=== PATIENT | male | born 1995 | race Caucasian/White ===

== ENCOUNTER 2022-01-13 13:25 | Emergency (ER) | payer OTHER, SELFPAY ==
--- NOTE | 2022-01-13 13:37 | ED_ITS ---
HPI - Skin/Abscess/Foreign Bdy General Chief complaint: General Medical <JANI Du Last Filed: 01/13/22 13:44> Stated complaint: Rash <JANI Du Last Filed: 01/13/22 13:44> Time Seen by Provider: 01/13/22 13:49 <JANI Du Last Filed: 01/13/22 13:44> Source: patient <JANI Loza Last Filed: 01/13/22 14:34> Mode of arrival: ambulatory <JANI Loza Last Filed: 01/13/22 14:34> Limitations: no limitations <JANI Loza Last Filed: 01/13/22 14:34> History of Present Illness HPI narrative: 26-year-old male presents to the ER for evaluation of a rash on his bilateral upper extremities that started when he was at work earlier today. He works at [employer]. He reports he was cooking some fluid and then went to go wash some dishes when he started developing and itchy, red rash on both of his hands and arms. He was given Benadryl, topical hydrocortisone and sent into the ER. Patient denies any facial swelling, wheezing, lip swelling. No history of similar reactions in the past. No known new soaps, detergents, exposure to hot oil or any other potentially irritating agents while at work. <JANI Loza Last Filed: 01/13/22 14:34> MD complaint: rash <JANI Loza Last Filed: 01/13/22 14:34> Onset (ago): minute(s) <JANI Loza Last Filed: 01/13/22 14:34> Location: LUE, RUE, L hand and R hand <JANI Loza Last Filed: 01/13/22 14:34> Quality: pruritic <JANI Loza Last Filed: 01/13/22 14:34> Pain Consistency: other (improving) <JANI Loza Last Filed: 01/13/22 14:34> Relieving factors: topical medication and medication <JANI Loza Last Filed: 01/13/22 14:34> Exacerbating factors: none <JANI Loza Last Filed: 01/13/22 14:34> Context: none <JANI Loza Last Filed: 01/13/22 14:34> Associated symptoms: denies other symptoms <JANI Loza Last Filed: 01/13/22 14:34> Treatments prior to arrival: Benadryl and corticosteroid <JANI Loza Last Filed: 01/13/22 14:34> Related Data Home medications: Previous Rx's Medication Instructions Recorded diphenhydramine HCl 25 mg capsule 50 mg PO TID PRN itching #20 caps 01/13/22 (Allergy Medication) prednisone 20 mg tablet 40 mg PO DAILY #10 tabs 01/13/22 <JANI Du Last Filed: 01/13/22 13:44> Allergies/Adverse reactions: Allergies Allergy/AdvReac Type Severity Reaction Status Date / Time No Known Allergies Allergy Verified 01/13/22 13:40 <JANI Du Last Filed: 01/13/22 13:44> Review of Systems Review of Systems: Constitutional: No Fever, No Chills ENT/Mouth: Nomouth swelling, No Swallowing Difficulty Eyes: No Eye Pain, No Swelling, No Redness Cardiovascular: No Chest Pain, No SOB Respiratory: No Cough, No Sputum, No Wheezing, No dyspnea Gastrointestinal: No Nausea, No Vomiting, No abdominal Pain Musculoskeletal: No joint pain, No Myalgias Skin: No Skin Lesions, + rash Psych: + Anxiety/Panic Heme/Lymph: No Lymphadenopathy <JANI Loza Last Filed: 01/13/22 14:34> [facility] Social History Social History: Social History Advance Directives: No Advance Directives Information Provided: No <JANI Du Last Filed: 01/13/22 13:44> Physical Exam Vital Signs: Vital Signs: Last Vital Signs Temp 98.0 F 01/13/22 13:40 Pulse 88 01/13/22 13:40 Resp 18 01/13/22 13:40 BP 117/113 H 01/13/22 13:40 Pulse Ox 98 01/13/22 13:40 O2 Del Method 01/13/22 13:40 BMI result Body Mass Index 38.2 <JANI Du - Last Filed: 01/13/22 13:44> Vital Signs: Last Vital Signs Temp 98.0 F 01/13/22 13:40 Pulse 88 01/13/22 13:40 Resp 18 01/13/22 13:40 BP 117/113 H 01/13/22 13:40 Pulse Ox 98 01/13/22 13:40 O2 Del Method 01/13/22 13:40 BMI result Body Mass Index 38.2 <JANI Loza - Last Filed: 01/13/22 14:34> Appearance: Alert. Oriented X3. No acute distress. HEENT: normal inspection. No swelling of the lips, tongue or mouth. Airway is patent. CVS: Normal heart rate and rhythm. Pulses normal. Respiratory: No respiratory distress. Lungs clear throughout. Skin: Skin warm and dry. Normal skin color. Normal skin turgor. There is a fine, erythematous maculopapular rash on the dorsal aspect of his bilateral hands and bilateral forearms. Extremities: Normal inspection, normal range of motion. Neuro: Oriented X 3. No motor deficit. No sensory deficit. <JANI Santiago - Last Filed: 01/13/22 14:34> Course Course Course Narrative: RME--26yo M c/o rash to hands/UE & facial flushing [id number] s/p washing dishes at work. Denies known allergens. Reports assoc throat itching. denies SOB. took p.o. Benadryl [employer] Talking complete sentences, uvula midline, no appreciable rash on limited exam in triage p.o. Pepcid, Claritin, and p.o. prednisone ordered in triage. Patient notably hypertensive in triage, denies history of HTN, denies headache/ CP. <JANI Du - Last Filed: 01/13/22 13:44> Reevaluation(s) Reevaluation #1: 1-year-old male presenting to the ER for evaluation of bilateral upper extremity rash after he was washing dishes and cooking at work. Possible contact dermatitis. Given doses of prednisone, Claritin and Pepcid while in the ED after he received the Benadryl and topical hydrocortisone at his employer. Rash is improving. Will treat for contact dermatitis with Benadryl and short course of prednisone. Patient agrees with plan. 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 Stable for DC. <JANI Loza - Last Filed: 01/13/22 14:34> Medications Administered Discontinued Medications Generic Name Dose Route Start Last Admin Trade Name Freq PRN Reason Stop Dose Admin Famotidine 20 mg 01/13/22 13:40 01/13/22 13:47 Famotidine 20 Mg Tablet PO 01/13/22 13:41 20 mg ONCE ONE Administration Loratadine 10 mg 01/13/22 13:40 01/13/22 13:47 Loratadine 10 Mg Tablet PO 01/13/22 13:41 10 mg ONCE ONE Administration Prednisone 40 mg 01/13/22 13:40 01/13/22 13:47 Prednisone 20 Mg Tablet PO 01/13/22 13:41 40 mg ONCE ONE Administration <JANI Du Last Filed: 01/13/22 13:44> Medications Administered Discontinued Medications Generic Name Dose Route Start Last Admin Trade Name Freq PRN Reason Stop Dose Admin Famotidine 20 mg 01/13/22 13:40 01/13/22 13:47 Famotidine 20 Mg Tablet PO 01/13/22 13:41 20 mg ONCE ONE Administration Loratadine 10 mg 01/13/22 13:40 01/13/22 13:47 Loratadine 10 Mg Tablet PO 01/13/22 13:41 10 mg ONCE ONE Administration Prednisone 40 mg 01/13/22 13:40 01/13/22 13:47 Prednisone 20 Mg Tablet PO 01/13/22 13:41 40 mg ONCE ONE Administration <JANI Loza Last Filed: 01/13/22 14:34> Discharge Plan Discharge Clinical Impression: Contact dermatitis <JANI Du Last Filed: 01/13/22 13:44> Patient Disposition: Home, Self-Care <JANI Du Last Filed: 01/13/22 13:44> Instructions: Contact Dermatitis (ED) <JANI Du Last Filed: 01/13/22 13:44> Prescriptions: New prednisone 20 mg tablet 40 mg PO DAILY Qty: 10 0RF diphenhydramine HCl [Allergy Medication] 25 mg capsule 50 mg PO TID PRN (Reason: itching) Qty: 20 0RF <JANI Du - Last Filed: 01/13/22 13:44> Stand Alone Forms: Work/School Release <JANI Du - Last Filed: 01/13/22 13:44> Interventions: ED Discharge Assessment Last Done: 01/13/22 14:18 <JANI Du - Last Filed: 01/13/22 13:44> Discharge Date/Time: 01/13/22 14:18 <JANI Du - Last Filed: 01/13/22 13:44> Print Language: Belarusian <JANI Du - Last Filed: 01/13/22 13:44>
[2022-01-13 13:40] VITALS: BP 117/113; PULSE 88; RESP 18; TEMP 36.7; O2SAT 98; BMI 38.2
[2022-01-13] MEDS: predniSONE 20 MG TABLET 40 MG PO (13:47)
[2022-01-13] MEDS: Loratadine 10 MG TABLET PO (13:47)
[2022-01-13] MEDS: Famotidine 20 MG TABLET PO (13:47)
== END 2022-01-13 14:18 | disposition home or self-care (01) ==
PROVIDERS: Emergency Provider Emergency Medicine Emergency Medical Services
DX: L25.9 Unspecified contact dermatitis, unspecified cause (principal); R21 Rash and other nonspecific skin eruption; Z79.899 Other long term (current) drug therapy
CPT/HCPCS: 99282; 99283

== ENCOUNTER 2022-02-20 18:49 | Emergency (ER) | payer OTHER, SELFPAY ==
[2022-02-20 19:18] VITALS: BP 151/94; PULSE 79; RESP 18; TEMP 36.3; O2SAT 99; BMI 38.2
--- NOTE | 2022-02-20 19:24 | ED.URI ---
HPI - URI/Sore Throat General Chief Complaint: Upper Respiratory Symptoms Stated Complaint: flu symptoms Time Seen by Provider: 02/20/22 19:28 Source: patient Mode of arrival: ambulatory Limitations: no limitations History of Present Illness HPI Narrative: 27-year-old male presents to the ER for evaluation of flu-like symptoms that started yesterday. He states he has had mild cough, nasal congestion, headaches, mild sore throat since yesterday. He is to go [employer] test at work today and had 2 lines on it. He did not know what that meant. He came to the ER for further evaluation. presents with similar symptoms. He is vaccinated, has had 2 or 3 of the COVID shots. No high risk factors. MD elicited complaint: cough, sore throat and nasal congestion Onset (ago): day(s) (1) Consistency: intermittent Severity: moderate Description of mucous: clear and watery Able to tolerate fluids by mouth: Yes Exacerbating factors: nothing Relieving factors: nothing Context: sick contacts Associated symptoms: chills, myalgias, headache, rhinorrhea, nasal congestion, sore throat and cough Treatments prior to arrival: none Related Data Previous Rx's Medication Instructions Recorded diphenhydramine HCl 25 mg capsule 50 mg PO TID PRN itching #20 caps 01/13/22 (Allergy Medication) prednisone 20 mg tablet 40 mg PO DAILY #10 tabs 01/13/22 Allergies Allergy/AdvReac Type Severity Reaction Status Date / Time No Known Allergies Allergy Verified 01/13/22 13:40 Review of Systems Review of Systems: Constitutional: No Fever, No Chills ENT/Mouth: +sore throat, +Rhinorrhea, No Swallowing Difficulty Eyes: No Eye Pain, No Swelling, No Redness Cardiovascular: No Chest Pain, No SOB Respiratory: +Cough, No Sputum, No Wheezing, No dyspnea Gastrointestinal: No Nausea, No Vomiting, No Diarrhea, No abdominal Painria Musculoskeletal: No joint pain, +Myalgias Skin: No Skin Lesions, No rash Neuro: No Weakness, No Numbness, No Dizziness, +Headache Psych: + Anxiety/Panic Heme/Lymph: No Bruising, No Lymphadenopathy PMFSH Social History Social History Advance Directives: No Advance Directives Information Provided: No Physical Exam Vital Signs: Vital Signs: Last Vital Signs Temp 97.4 F 02/20/22 19:18 Pulse 79 02/20/22 19:18 Resp 18 02/20/22 19:18 BP 151/94 H 02/20/22 19:18 Pulse Ox 99 02/20/22 19:18 O2 Del Method 02/20/22 19:18 BMI result Body Mass Index 38.2 Appearance: Alert. Oriented X3. No acute distress. HEENT: normal inspection. Oropharynx with moist mucous membranes. No tonsillar swelling or exudate. Normal voice. Handling secretions normally. Clear nasal discharge bilaterally CVS: Normal heart rate and rhythm. Pulses normal. Respiratory: No respiratory distress. Lungs are clear throughout. Skin: Skin warm and dry. Normal skin color. Normal skin turgor. No rashes. Extremities: Normal inspection x4, steady gait. Neuro: Oriented X 3. Grossly normal, nonfocal. Course Course Course Narrative: 19:25 - 27 yo male presenting with cough, congestion, headache, sore throat. Tested positive for COVID at work but didn't know what the 2 lines meant. Swab sent here to confirm. VSS. Vaccinated x2-3 for COVID. will be able to be d/c home with supportive care. Discharge Plan Discharge Clinical Impression: COVID-19 Patient Disposition: Home, Self-Care Instructions: Covid-19 Viral Syndrome and Novel Coronavirus (ED) Hey/Ath Additional Instructions: You were found to be COVID-19 POSITIVE today. Rest. Drink plenty of fluids. Do not go out in public while you are not feeling well. Take over the counter cold/flu medications as needed for your symptoms. Take Tylenol and/or Motrin as needed for fevers and body aches. Follow up with your doctor this week. If you shortness of breath worsens , if you develop difficulty breathing or any other concerning symptom come back to the ER for further evaluation. Prescriptions: No Action prednisone 20 mg tablet 40 mg PO DAILY Qty: 10 0RF diphenhydramine HCl [Allergy Medication] 25 mg capsule 50 mg PO TID PRN (Reason: itching) Qty: 20 0RF Stand Alone Forms: Work/School Release Print Language: Guatemalan
[2022-02-20 20:22] LABS: Influenza A PCR NEGATIVE (Negative); Influenza B PCR NEGATIVE (Negative); Resp Syncy Virus RNA Qual PCR NEGATIVE (Negative); SARS COV2 PCR INHOUSE POSITIVE (Negative)
== END 2022-02-20 21:39 | disposition home or self-care (01) ==
PROVIDERS: Emergency Provider Emergency Medicine
DX: U07.1 COVID-19 (principal); M79.10 Myalgia, unspecified site; R51.9 Headache, unspecified; R05.9 Cough, unspecified; Z79.899 Other long term (current) drug therapy
CPT/HCPCS: 0241U; 99282; 99283

== ENCOUNTER 2022-09-15 21:48 | Emergency (ER) | payer OTHER, SELFPAY ==
[2022-09-15 22:21] VITALS: BP 151/97; PULSE 90; RESP 18; TEMP 36.8; O2SAT 98; BMI 36.6
[2022-09-15 22:38] LABS: MANUAL DIFF FLAG NO
[2022-09-15 22:41] LABS: Basophils Absolute Auto 0.1 X10*3/uL (0.0-0.2); Basophils Percent Auto 0.7 % (0-2); Eosinophils Absolute Auto 1.6 X10*3/uL (0.0-0.4); Eosinophils Percent Auto 10.7 % (0-4); Hematocrit 47.6 % (42.0-52.0); Hemoglobin 16.4 g/dl (14.0-18.0); Imm Gran Abs Auto 0.05 X10*3/uL (0.00-0.03); Imm Gran Pct Auto 0.3 % (0.0-0.4); Lymphocytes Absolute Auto 3.2 X10*3/uL (1.2-4.9); Lymphocytes Percent Auto 22.2 % (20-40); Mean Corpuscular HGB Conc 34.5 g/dl (31.0-36.0); Mean Corpuscular Hemoglobin 29.4 pg (27.0-33.0); Mean Corpuscular Volume 85.3 fL (80.0-98.0); Mean Platelet Volume 9.6 fL (9.4-12.4); Monocytes Absolute Auto 1.1 X10*3/uL (0.1-1.2); Monocytes Percent Auto 7.6 % (2-11); Neutrophils Absolute Auto 8.5 x10*3/uL (2.0-8.3); Neutrophils Percent Auto 58.5 % (45-73); Platelet Count 371 X10*3/uL (160-400); Red Blood Count 5.58 X10*6/uL (4.60-5.80); Red Cell Distribution Width 12.3 % (11.0-16.0); White Blood Count 14.5 X10*3/uL (4.8-10.8)
[2022-09-15 22:54] LABS: Alanine Aminotransferase 67 U/L (0-40); Albumin Level 4.1 g/dL (3.5-5.0); Alkaline Phosphatase 51 U/L (39-117); Anion Gap 11 (12-20); Aspartate Amino Transferase 34 U/L (5-37); Bilirubin Direct 0.1 mg/dL (0.0-0.5); Bilirubin Total 0.3 mg/dL (0.0-1.0); Blood Urea Nitrogen 8 mg/dL (9-16); Calcium 9.3 mg/dL (8.4-10.2); Carbon Dioxide 29 mmol/L (22-29); Chloride 105 mmol/L (96-108); Creatinine Clr Calc Pharmacy 142.6; Estimated Glomerular Filt Rate > 60; Glucose Random 113 mg/dL (60-115); Potassium 3.5 mmol/L (3.3-5.1); Sodium 141 mmol/L (135-145); Total Protein 7.3 g/dL (6.5-8.0)
[2022-09-16 00:24] VITALS: BP 178/102; PULSE 72; RESP 16; TEMP 37.2; O2SAT 99
[2022-09-16 00:41] LABS: Appearance Urine Cloudy; Color Urine Yellow; Glucose Urine UA Negative (Negative); Leukocyte Esterase Urine Negative (Negative); Nitrite Urine Negative (Negative); PH 6.5 (5.0-9.0); Urine Blood Negative (Negative); Urine Ketones Negative (Negative); Urine Protein Negative (Neg-Trace)
--- NOTE | 2022-09-16 00:51 | ED_ITS ---
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 Symptoms started since yesterday in the epigastric area as a dull aching pain localized to the epigastric area with no radiation, pain started since yesterday has been steady, patient also feels like burning sensation in the epigastric area. Pain is worse with food patient did not eat since yesterday, normal bowel movement with no bleeding or black stool. No recent travel, no recent prolonged immobilization or exposure to a bad food, no recent use of antibiotic. Related Data Previous Rx's Medication Instructions Recorded diphenhydramine HCl 25 mg capsule 50 mg PO TID PRN itching #20 caps 01/13/22 (Allergy Medication) prednisone 20 mg tablet 40 mg PO DAILY #10 tabs 01/13/22 omeprazole 40 mg capsule,delayed 40 mg PO DAILY #14 caps 09/16/22 release Allergies Allergy/AdvReac Type Severity Reaction Status Date / Time No Known Allergies Allergy Verified 01/13/22 13:40 Review of Systems Review of Systems All other systems are reviewed and are negative Constitutional: Reports as per HPI and Reports no additional constitutional complaints Eyes: Reports as per HPI and Reports no additional eye complaints Reports system reviewed and no additional complaints, except as documented Cardiovascular: Reports as per HPI and Reports no additional cardiovascular complaints Respiratory: Reports as per HPI and Reports no additional respiratory complaints Gastrointestinal: Reports as per HPI and Reports no additional gastrointestinal complaints Genitourinary: Reports no additional female genitourinary complaints Musculoskeletal: Reports no additional musculoskeletal complaints Skin/Breast: Reports system reviewed and no additional complaints, except as docu Psychiatric: Reports no additional psychiatric complaints Endocrine: Reports no additional endocrine complaints Hematologic/Lymphatic: Reports no additional hematologic/lymphatic complaints Allergic/Immunologic: Reports no additional allergic/immunologic complaints Reports system reviewed and no additional complaints, except as documented and Reports Abnormal speech present [facility] Social History Social History Advance Directives: No Advance Directives Information Provided: Yes Physical Exam ED Vital Signs: Vital Signs - 24 hr 09/15/22 22:21 09/16/22 00:24 Temperature 98.2 F 98.9 F Pulse Rate 90 72 Respiratory Rate 18 16 Blood Pressure 151/97 H 178/102 H Pulse Oximetry 98 99 Oxygen Delivery Method Room Air Room Air BMI result Body Mass Index 36.6 Vital signs have been reviewed as appeared to be correct. Blood pressure normal. Heart rate normal. Respiration rate normal. Temperature normal. Oxygen saturation normal. Appearance: Alert. Oriented X3. No acute distress. Head: Normal external exam. Normocephalic. Atraumatic. No Guerrero signs noted. No raccoon eyes noted Eyes: PERRLA. EOMI. Conjunctiva and sclera normal. Eyelids normal. ENT: TM's Normal. Pharynx normal. Uvula midline. Moist mucous membranes. No trismus noted. No drooling noted. No muffled voice noted. Neck: Normal inspection. Neck supple. FROM. No adenopathy. Thyroid Normal. No meningeal signs. No neck mass noted. CVS: Normal heart rate and rhythm. Heart sound normal. No murmurs noted. Pulses normal throughout. Respiratory: No respiratory distress. Painless inspiration. Breath sounds normal. No wheezes/rales/rhonchi noted. Chest nontender. No accessory muscle usage noted or decreased air movement noted. Abdomen: Soft, epigastric tenderness, no guarding, no rebound tenderness.. Bowel sounds normal in all 4 quadrants. No distention noted. No organomegaly noted. No visible injury noted. Back: No CVA tenderness. Full range of motion noted. Skin: Skin warm and dry. Normal skin color. Normal skin turgor. No rashes/lesions/lacerations noted. Extremities: No lower extremity edema. Extremities exhibit normal range of motion. Extremities nontender. Neuro: Oriented X 3. Cranial nerve exam: II-XII are grossly intact No motor deficit. No sensory deficit. Reflexes normal. Course Course Course Narrative: 27-year-old male came in with epigastric abdominal pain with vomiting, physical exam is consistent with gastritis, patient feels better able to tolerate p.o. intake will discharge with Prilosec and follow-up with GI. Medical Decision Making Differential Diagnosis Differential Diagnoses: The differential diagnosis associated with the presentation includes (Gastritis, gallbladder disease, liver disease, pancreatitis, electrolyte abnormality, severe anemia, UTI.) Admission/Observation Consideration of admission/observation: Escalation of care including admission/observation considered Lab Data MDM Lab Attestation statement: I reviewed the patient's lab results. 09/15/22 22:35 09/15/22 22:35 Labs: Lab Results 09/15/22 09/15/22 09/16/22 Range/Units 22:35 22:35 00:35 WBC 14.5 H (4.8-10.8) X10*3/uL RBC 5.58 (4.60-5.80) X10*6/uL Hgb 16.4 (14.0-18.0) g/dl Hct 47.6 (42.0-52.0) % MCV 85.3 (80.0-98.0) fL MCH 29.4 (27.0-33.0) pg MCHC 34.5 (31.0-36.0) g/dl RDW 12.3 (11.0-16.0) % Plt Count 371 (160-400) X10*3/uL MPV 9.6 (9.4-12.4) fL Immature Gran % (Auto) 0.3 (0.0-0.4) % Neut % (Auto) 58.5 (45-73) % Lymph % (Auto) 22.2 (20-40) % Atkinson % (Auto) 7.6 (2-11) % Eos % (Auto) 10.7 H (0-4) % Baso % (Auto) 0.7 (0-2) % Lymph # (Auto) 3.2 (1.2-4.9) X10*3/uL Atkinson # (Auto) 1.1 (0.1-1.2) X10*3/uL Eos # (Auto) 1.6 H (0.0-0.4) X10*3/uL Baso # (Auto) 0.1 (0.0-0.2) X10*3/uL Abs Immat Gran (auto) 0.05 H (0.00-0.03) X10*3/uL Absolute Neuts (auto) 8.5 H (2.0-8.3) x10*3/uL Absolute Nucleated RBC 0.000 (0.0-0.012) X10*3/uL Nucleated RBC % (auto) 0.0 (0.0-0.2) /100WBC Sodium 141 (135-145) mmol/L Potassium 3.5 (3.3-5.1) mmol/L Chloride 105 (96-108) mmol/L Carbon Dioxide 29 (22-29) mmol/L Anion Gap 11 L (12-20) BUN 8 L (9-16) mg/dL Creatinine 0.83 (0.5-1.4) mg/dL Estim Creat Clear Calc 142.6 Estimated GFR > 60 Random Glucose 113 (60-115) mg/dL Calcium 9.3 (8.4-10.2) mg/dL Total Bilirubin 0.3 (0.0-1.0) mg/dL Direct Bilirubin 0.1 (0.0-0.5) mg/dL AST 34 (5-37) U/L ALT 67 H (0-40) U/L Alkaline Phosphatase 51 (39-117) U/L Total Protein 7.3 (6.5-8.0) g/dL Albumin 4.1 (3.5-5.0) g/dL Urine Color Yellow Urine Appearance Cloudy Urine pH 6.5 (5.0-9.0) Ur Specific Beverly 1.020 (1.005-1.025) Urine Protein Negative (Neg-Trace) mg/dL Urine Glucose (UA) Negative (Negative) mg/dL Urine Ketones Negative (Negative) mg/dL Urine Blood Negative (Negative) Urine Nitrite Negative (Negative) Ur Leukocyte Esterase Negative (Negative) Discharge Plan Discharge Clinical Impression: Gastritis Patient Disposition: Home, Self-Care Instructions: Gastritis (ED) Prescriptions: New omeprazole 40 mg capsule,delayed release(DR/EC) 40 mg PO DAILY Qty: 14 0RF No Action prednisone 20 mg tablet 40 mg PO DAILY Qty: 10 0RF diphenhydramine HCl [Allergy Medication] 25 mg capsule 50 mg PO TID PRN (Reason: itching) Qty: 20 0RF Referrals: Lupe Queen MD [Physician] -
[2022-09-16] MEDS: 0.9 % Sodium Chloride 1,000 ML 999 ML IV (01:12)
[2022-09-16] MEDS: Famotidine/PF 20 MG/2 ML VIAL IVPUSH (01:12)
[2022-09-16] MEDS: Magnesium Hydrox/Alum Hydrox 30 ML ORAL.SUSP PO (01:12)
[2022-09-16 02:29] VITALS: BP 159/80; PULSE 67; RESP 16; TEMP 37.2; O2SAT 98
== END 2022-09-16 03:31 | disposition home or self-care (01) ==
PROVIDERS: Emergency Provider Emergency Medicine
DX: K29.70 Gastritis, unspecified, without bleeding (principal); R10.10 Upper abdominal pain, unspecified; F12.90 Cannabis use, unspecified, uncomplicated
CPT/HCPCS: 36415; 80053; 81003; 82248; 85025; 96374; 99284

== ENCOUNTER 2023-03-04 09:03 | Emergency (ER) | payer OTHER, SELFPAY ==
--- NOTE | ~2023-03-04 | XR_ITS ---
EXAMINATION: XR CHEST CLINICAL INFORMATION: Chest pain COMPARISON: None available. TECHNIQUE: 2 views of the chest were obtained. 9:40 AM FINDINGS: The lungs are relatively well expanded no focal consolidation, interstitial pulmonary edema or pneumothorax. No pleural effusion. No significant abnormality is noted involving the heart, mediastinum or soft tissues. No acute osseous abnormality. XR/XR chest 2V IMPRESSION: No acute cardiopulmonary disease.
[2023-03-04 09:17] VITALS: BP 169/93; PULSE 81; RESP 19; TEMP 36.6; O2SAT 98; BMI 39.3
--- NOTE | 2023-03-04 09:19 | ECG_ITS ---
Test Reason : cp Blood Pressure : / mmHG Vent. Rate : 073 BPM Atrial Rate : 073 BPM P-R Int : 140 ms QRS Dur : 082 ms QT Int : 404 ms P-R-T Axes : 027 038 036 degrees QTc Int : 445 ms Normal sinus rhythm with sinus arrhythmia Normal ECG No previous ECGs available Referred By: Generic ED Physician Electronically Signed By:BHAVNA MURPHY MD
[2023-03-04 09:40] LABS: Basophils Percent Auto 0.6 % (0-2); Eosinophils Absolute Auto 0.2 X10*3/uL (0.0-0.4); Eosinophils Percent Auto 3.1 % (0-4); Hematocrit 47.7 % (42.0-52.0); Hemoglobin 16.2 g/dl (14.0-18.0); Imm Gran Abs Auto 0.02 X10*3/uL (0.00-0.03); Imm Gran Pct Auto 0.3 % (0.0-0.4); Lymphocytes Absolute Auto 2.5 X10*3/uL (1.2-4.9); Mean Corpuscular Hemoglobin 29.1 pg (27.0-33.0); Mean Corpuscular Volume 85.8 fL (80.0-98.0); Mean Platelet Volume 10.1 fL (9.4-12.4); Monocytes Absolute Auto 0.7 X10*3/uL (0.1-1.2); Monocytes Percent Auto 11.1 % (2-11); Neutrophils Percent Auto 45.9 % (45-73); Red Blood Count 5.56 X10*6/uL (4.60-5.80); Red Cell Distribution Width 12.4 % (11.0-16.0)
[2023-03-04 09:43] LABS: Platelet Count 357 X10*3/uL (160-400); White Blood Count 6.5 X10*3/uL (4.8-10.8)
[2023-03-04 09:54] LABS: Anion Gap 11 (12-20); Blood Urea Nitrogen 10 mg/dL (9-16); Calcium 8.9 mg/dL (8.4-10.2); Carbon Dioxide 25 mmol/L (22-29); Chloride 108 mmol/L (96-108); Creatinine Clr Calc Pharmacy 148.5; Estimated Glomerular Filt Rate > 60; Glucose Random 126 mg/dL (60-115); Potassium 3.9 mmol/L (3.3-5.1); Sodium 140 mmol/L (135-145)
[2023-03-04 10:03] LABS: Troponin-I High Sensitivity < 2.7 ng/L (<3.5-35.0)
[2023-03-04 10:24] LABS: Influenza A PCR NEGATIVE (Negative); Influenza B PCR NEGATIVE (Negative); Resp Syncy Virus RNA Qual PCR NEGATIVE (Negative); SARS COV2 PCR INHOUSE POSITIVE (Negative)
[2023-03-04 13:58] VITALS: BP 160/88; PULSE 79; RESP 19; TEMP 36.1; O2SAT 98
--- NOTE | 2023-03-04 14:00 | ED_ITS ---
HPI - Chest Pain General Chief Complaint: Chest Pain Stated Complaint: Chest Pain Fever Time Seen by Provider: 03/04/23 13:58 Source: patient Mode of arrival: ambulatory Limitations: no limitations History of Present Illness HPI narrative: 28 yold male presents to the ED for coughing with chest pain, bodaches, and chills. patient states no pleurisy, leg swelling, calf pain, shortness of breath, or recent trauma. Related Data Previous Rx's Medication Instructions Recorded diphenhydramine HCl 25 mg capsule 50 mg (2 x 25 mg) PO TID PRN 01/13/22 (Allergy Medication) itching #20 caps prednisone 20 mg tablet 40 mg (2 x 20 mg) PO DAILY #10 tabs 01/13/22 omeprazole 40 mg capsule,delayed 40 mg PO DAILY #14 caps 09/16/22 release Allergies Allergy/AdvReac Type Severity Reaction Status Date / Time No Known Allergies Allergy Verified 01/13/22 13:40 Review of Systems 2 Review of Systems: chest pain with coughing, bodyaches, chills Yes all other systems are reviewed and are negative [facility] Social History Social History Alcohol intake: never Substance Use Type: Marijuana Advance Directives: No Physical Exam 2 Vital Signs: Vital Signs: Last Vital Signs Temp 97 F 03/04/23 13:58 Pulse 79 03/04/23 13:58 Resp 19 03/04/23 13:58 BP 160/88 H 03/04/23 13:58 Pulse Ox 98 03/04/23 13:58 O2 Del Method Room Air 03/04/23 13:58 BMI result Body Mass Index 39.3 Const: General: cooperative, healthy appearing, comfortable, no acute distress, well developed, alert and awake Orientation/consciousness: oriented to person, oriented to place, oriented to time and patient oriented x3 HEENT: Head: Yes normal to inspection, Yes No palpable skull fracture present, Yes normocephalic and Yes atraumatic Ears: hearing grossly normal bilaterally, external ears normal, TM's normal bilaterally, TM normal on the right, TM normal on the left, EAC's normal, mastoids normal and no periauricular adenopathy Throat: Yes posterior oropharynx normal, Yes tonsils normal and Yes uvula midline Eyes: General: appearance normal, both eyes and all related structures Neck: Neck: Yes normal visual inspection, Yes full ROM, Yes no lymphadenopathy, Yes no meningeal signs, Yes trachea midline, No supple and No tender Chest: Chest palpation & inspection: normal inspection of the chest and normal palpation of entire chest wall Resp: Effort & Inspection: normal respiratory effort and able to speak in complete sentences Auscultation: clear to auscultation bilaterally Cardio: Jugular venous distension: no JVD Heart sounds: S1 normal heart sound present and S2 normal heart sound present GI: Inspection: Yes normal to inspection Palpation (GI): Soft to palpation, not firm, nontender, no guarding and not rigid : General: Yes no CVA tenderness Back/Spine/Pelvis: Back: no CVA tenderness and No back tenderness Skin: General skin exam: no rashes or lesions noted, elasticity normal and turgor normal Neuro: General: oriented to person, oriented to place, oriented to time, patient oriented x3, gait normal, tone normal, moves all extremities, Normal light touch and pain sensation, no meningeal signs and no focal motor deficits Extrem: Other: bilateral lower extremties negative for pittign edema, calf tenderness or swelling. General: Yes normal to inspection and Yes full ROM Psych: Appearance: grossly normal, well kempt and not disheveled Course Course Course Narrative: RME: Patient positive COVID. Vital signs stable. Troponin EKG negative. Patient is safe for discharge. Patient re-evaluated at triage. Medical Decision Making Medical Decision Making [facility] Narrative: 28-year-old male presents to ED with coughing, chest pain since last Friday. Patient denies any pleurisy, leg swelling, calf pain, or coughing up blood. Chest x-ray negative pneumonia. EKG troponin negative. COVID positive. Not suspect a myocardial infarction. Not suspecting heart failure. not suspect a pulmonary embolus. Not suspect myocarditis. Patient is safe for discharge. EKG negative STEMI Differential Diagnosis Differential Diagnoses: The differential diagnosis associated with the presentation includes (SARS, COvid, RSV, pneumonia) Admission/Observation Consideration of admission/observation: Escalation of care including admission/observation considered Lab Data [facility] Lab Attestation statement: I reviewed the patient's lab results. 03/04/23 09:31 03/04/23 09:31 Labs: Lab Results 03/04/23 Range/Units 09:31 WBC 6.5 (4.8-10.8) X10*3/uL RBC 5.56 (4.60-5.80) X10*6/uL Hgb 16.2 (14.0-18.0) g/dl Hct 47.7 (42.0-52.0) % MCV 85.8 (80.0-98.0) fL MCH 29.1 (27.0-33.0) pg MCHC 34.0 (31.0-36.0) g/dl RDW 12.4 (11.0-16.0) % Plt Count 357 (160-400) X10*3/uL MPV 10.1 (9.4-12.4) fL Immature Gran % (Auto) 0.3 (0.0-0.4) % Neut % (Auto) 45.9 (45-73) % Lymph % (Auto) 39.0 (20-40) % Hood % (Auto) 11.1 H (2-11) % Eos % (Auto) 3.1 (0-4) % Baso % (Auto) 0.6 (0-2) % Lymph # (Auto) 2.5 (1.2-4.9) X10*3/uL Hood # (Auto) 0.7 (0.1-1.2) X10*3/uL Eos # (Auto) 0.2 (0.0-0.4) X10*3/uL Baso # (Auto) 0.0 (0.0-0.2) X10*3/uL Abs Immat Gran (auto) 0.02 (0.00-0.03) X10*3/uL Absolute Neuts (auto) 3.0 (2.0-8.3) x10*3/uL Absolute Nucleated RBC 0.000 (0.0-0.012) X10*3/uL Nucleated RBC % (auto) 0.0 (0.0-0.2) /100WBC Sodium 140 (135-145) mmol/L Potassium 3.9 (3.3-5.1) mmol/L Chloride 108 (96-108) mmol/L Carbon Dioxide 25 (22-29) mmol/L Anion Gap 11 L (12-20) BUN 10 (9-16) mg/dL Creatinine 0.82 (0.5-1.4) mg/dL Estim Creat Clear Calc 148.5 Estimated GFR > 60 Random Glucose 126 H (60-115) mg/dL Calcium 8.9 (8.4-10.2) mg/dL Troponin I High Sens < 2.7 (<3.5-35.0) ng/L Influenza Type A (PCR) NEGATIVE (Negative) Influenza Type B (PCR) NEGATIVE (Negative) RSV RNA Qual (PCR) NEGATIVE (Negative) SARS-CoV-2 RNA (RT-PCR) POSITIVE A (Negative) Independent Interpretation I performed an independent interpretation of an: EKG (NOrmal Sinus. negative Stemi) and Plain X-Ray Radiology Impression Discussion of test interpretation with radiology: I have reviewed the radiologist's reading. External Record Review External record reviewed: Other (Prior visits) Discharge Plan Discharge Clinical Impression: COVID-19 Patient Disposition: Home, Self-Care Instructions: COVID-19 (Coronavirus Disease 2019) (ED) Additional Instructions: Leonard electrocardiograma y an?lisis de jeancarlos resultaron negativos para un ataque card?aco. Radiograf?a de t?rax negativa para neumon?a. Eres positivo para el virus COVID-19. Recomendar autoaislamiento, descanso e hidrataci?n bucal. Regrese al servicio de urgencias de inmediato si el dolor en el pecho empeora, dificultad para respirar al hacer ejercicio, tos con jeancarlos, hinchaz?n de las piernas, dolor en la pantorrilla, debilidad, mareos, dolor en el pecho al inspirar, saturaci?n de ox?kerwin por debajo del 94% o cualquier otro s?ntoma relacionado. Por favor rosalind un seguimiento con leonard PCP. Your EKG and blood work came back negative for heart attack. Chest x-ray negative for pneumonia. You are positive for COVID-19 virus. Recommend self- isolation, rest, and oral hydration. Return to the ED immediately for any worsening chest pain, shortness of breath on exertion, coughing up blood, leg swelling, calf pain, weakness, dizziness, chest pain on inspiration, oxygen saturaation below 94% or any other conerning symptoms. pLease follow up with PCP. Prescriptions: No Action prednisone 20 mg tablet 40 mg PO DAILY Qty: 10 0RF diphenhydramine HCl [Allergy Medication] 25 mg capsule 50 mg PO TID PRN (Reason: itching) Qty: 20 0RF omeprazole 40 mg capsule,delayed release(DR/EC) 40 mg PO DAILY Qty: 14 0RF Stand Alone Forms: Work/School Release Interventions: ED Discharge Assessment Last Done: 03/04/23 14:32 Discharge Date/Time: 03/04/23 14:34 Print Language: American
== END 2023-03-04 14:34 | disposition home or self-care (01) ==
PROVIDERS: Emergency Provider Emergency Medicine Emergency Medical Services
DX: U07.1 COVID-19 (principal); R07.89 Other chest pain; M79.10 Myalgia, unspecified site; R05.9 Cough, unspecified; Z79.899 Other long term (current) drug therapy
CPT/HCPCS: 0241U; 71046; 80048; 84484; 85025; 93005; 99283

== ENCOUNTER → 2023-03-04 09:19 | Outpatient (BNV) | payer OTHER, SELFPAY | PROVIDERS: Emergency Provider Emergency Medicine Emergency Medical Services; Visit Provider Internal Medicine Cardiovascular Disease | DX: R07.9 Chest pain, unspecified (principal) | CPT/HCPCS: 93010 ==

== ENCOUNTER 2023-04-16 09:01 | Emergency (ER) | payer OTHER, SELFPAY ==
[2023-04-16 09:04] VITALS: BP 152/104; PULSE 101; RESP 17; TEMP 36.6; O2SAT 97; BMI 40.4
== END 2023-04-16 12:09 | disposition left against medical advice (07) ==
PROVIDERS: Emergency Provider Emergency Medicine
DX: R05.9 Cough, unspecified (principal); R11.10 Vomiting, unspecified; R10.9 Unspecified abdominal pain
CPT/HCPCS: 99281

== ENCOUNTER 2023-05-20 14:31 | Emergency (ER) | payer OTHER, SELFPAY ==
--- NOTE | ~2023-05-20 | XR_ITS ---
EXAMINATION: XR CHEST CLINICAL INFORMATION: Pneumonia? Cough. COMPARISON: Chest radiograph dated 03/04/2023. TECHNIQUE: Frontal view of the chest was obtained. FINDINGS: The trachea is in normal anatomic position. Heart size is normal. The lungs are clear bilaterally. There is no pleural effusion or pneumothorax. No acute osseous abnormality. XR/XR chest 1V IMPRESSION: No acute cardiopulmonary disease.
[2023-05-20 15:21] VITALS: BP 150/92; PULSE 112; RESP 20; TEMP 37.2; O2SAT 98; BMI 40.6
--- NOTE | 2023-05-20 15:24 | ED_ITS ---
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 Patient reports that his symptoms started off as congestion and cough however states that the symptoms have since progressed into worsening cough, congestion, subjective fevers and chills over the last several days. He denies any sick contacts. He has been taking [id number] cold medicine without any relief. He denies any chest pain, shortness of breath, palpitations, abdominal pain, nausea or vomiting. He does report some diarrhea. No bloody or black stool. Denies any other complaints or concerns at this time. MD complaint: Cough, congestion Onset (ago): week(s) Radiation: non-radiation Severity: moderate Quality: aching Pain Consistency: constant Relieving factors: none Exacerbating factors: none Associated symptoms: denies other symptoms Treatments prior to arrival: none Related Data Previous Rx's Medication Instructions Recorded diphenhydramine HCl 25 mg capsule 50 mg (2 x 25 mg) PO TID PRN 01/13/22 (Allergy Medication) itching #20 caps prednisone 20 mg tablet 40 mg (2 x 20 mg) PO DAILY #10 tabs 01/13/22 omeprazole 40 mg capsule,delayed 40 mg PO DAILY #14 caps 09/16/22 release azithromycin 250 mg tablet 250 mg PO DAILY 4 days #4 tabs 05/20/23 Allergies Allergy/AdvReac Type Severity Reaction Status Date / Time No Known Allergies Allergy Verified 04/16/23 09:04 Review of Systems Review of Systems: Yes all other systems are reviewed and are negative Constitutional: Constitutional: Reports as per [facility] Social History Social History Alcohol intake: never Smoked in Last 30 Days: No Use of substances other than those prescribed or required for medical reasons: Yes Substance Use Type: Marijuana Substance Use Frequency: Occasionally Advance Directives: No Advance Directives Information Provided: No Physical Exam ED Vital Signs: Vital Signs - 24 hr 05/20/23 17:57 05/20/23 18:01 Temperature 97.8 F Pulse Rate 111 H Respiratory Rate 18 Blood Pressure 128/68 Pulse Oximetry 99 99 Oxygen Delivery Method Room Air Room Air BMI result Body Mass Index 40.6 Const General: cooperative, comfortable and no acute distress Orientation/consciousness: patient oriented x3 Limitations: no limitations HENMT Head: Yes normal to inspection, Yes normocephalic and Yes atraumatic Ears: hearing grossly normal bilaterally and TM's normal bilaterally General nose exam: Normal external nose present Face and sinus: Yes normal facial exam Mouth: Normal oral and palatal mucosa present, oropharynx normal and moist mucous membranes Throat: Yes posterior oropharynx normal Eyes General: appearance normal, both eyes and all related structures Eyelids: Yes eyelids normal Conjunctivae: conjunctivae normal Sclerae: sclerae normal Pupils: Equal, round and reactive pupils present EOM: EOMs intact bilaterally Neck Neck: Yes normal visual inspection, Yes full ROM and Yes no lymphadenopathy Lymphatic: no lymphadenopathy noted Chest Chest palpation & inspection: normal inspection of the chest Resp Effort & Inspection: normal respiratory effort and able to speak in complete sentences Auscultation: clear to auscultation bilaterally, no crackles, no rales, no rhonchi and no wheezes Cardio Rate: regular rate Rhythm: regular rhythm Heart sounds: S1 normal heart sound present and S2 normal heart sound present GI Inspection: Yes normal to inspection Skin General skin exam: no rashes or lesions noted Trauma: no lacerations or abrasions Wounds: no wounds Neuro General: patient oriented x3 and moves all extremities Cranial nerves: Yes Equal, round and reactive pupils present Extrem General: Yes normal to inspection Right upper extremity: normal to inspection Left upper extremity: normal to inspection Right lower extremity: normal to inspection Left lower extremity: normal to inspection Course Course Course Narrative: RME: 28-year-old male presents to ED for sore throat, coughing, and chest pain only when he cough with chills and body aches for a couple of days. SARs and x- ray ordered. Reevaluation(s) Reevaluation #1: Patient tested positive for flu, chest x-ray unremarkable for pneumonia. Given patient has been sick for the last 2 weeks, it is unclear when he contracted influenza therefore Tamiflu not indicated at this time especially as he is not immunocompromised and is otherwise healthy. Given that he has been sick for the last 2 weeks, will trial antibiotics. Given 1st dose in department today. Discussed return precautions, he understands and agrees with plan. Patient stable for discharge. Time: 17:40 Medications Administered Discontinued Medications Generic Name Dose Route Start Last Admin Trade Name Van PRN Reason Stop Dose Admin Azithromycin 500 mg 05/20/23 17:36 05/20/23 17:50 Azithromycin 500 Mg Tablet PO 05/20/23 17:37 500 mg ONCE ONE Administration Medical Decision Making Medical Decision Making [facility] Narrative: This is a 28-year-old male, with no known medical problems, presenting to the emergency department for evaluation of cough, congestion, for the last 2 weeks. On arrival, patient mildly hypertensive at 150/92, pulse 112, repeat vitals improved. He is nontoxic appearing, afebrile. Differential diagnoses include upper respiratory infection, bronchitis, pneumonia, influenza, COVID, strep. Less likely pneumothorax. On examination, lungs clear to auscultation bilaterally, oropharynx without any erythema or edema. He is under no acute respiratory distress. Plan: Chest x-ray, viral swabs, strep swab Differential Diagnosis Differential Diagnoses: The differential diagnosis associated with the presentation includes See above Admission/Observation Consideration of admission/observation: Escalation of care including admission/observation considered Escalation of care including admission/observation considered however given workup today not warranted at this time. Lab Data [facility] Lab Attestation statement: I reviewed the patient's lab results. Influenza a positive Labs: Lab Results 05/20/23 Range/Units 16:03 Influenza Type A (PCR) POSITIVE A (Negative) Influenza Type B (PCR) NEGATIVE (Negative) RSV RNA Qual (PCR) NEGATIVE (Negative) SARS-CoV-2 RNA (RT-PCR) NEGATIVE (Negative) S. pyogenes GrpA PREM Negative (Negative) Independent Interpretation I performed an independent interpretation of an: Plain X-Ray Interpretation: I reviewed the x-ray and agree with the radiology report Radiology Impression Discussion of test interpretation with radiology: I have reviewed the radiologist's reading. Radiologist Impression: EXAMINATION: XR CHEST CLINICAL INFORMATION: Pneumonia? Cough. COMPARISON: Chest radiograph dated 03/04/2023. TECHNIQUE: Frontal view of the chest was obtained. FINDINGS: The trachea is in normal anatomic position. Heart size is normal. The lungs are clear bilaterally. There is no pleural effusion or pneumothorax. No acute osseous abnormality. XR/XR chest 1V IMPRESSION: No acute cardiopulmonary disease. Dictated By: Demetrio Castro Jr DO Signed By: <Electronically signed by Prescription Management I considered prescription management with: Antiviral and Antibiotic Consider treatment with Tamiflu however unclear how long patient has been symptomatic for with flu. Discharge Plan Discharge Clinical Impression: Influenza A, Upper respiratory infection Patient Disposition: Home, Self-Care Instructions: Influenza (ED), Upper Respiratory Infection (ED) Additional Instructions: You were seen in the emergency department due to a cough. You tested positive for influenza A. It is unclear how long you have had this therefore antivirals would not be beneficial for you. Given you have been sick for the last 2 weeks, I am treating you with a course of antibiotics. You received your 1st dose in the department today. Drink plenty of fluids get plenty of rest. Alternate between ibuprofen and Tylenol as needed for pain and symptoms. If any new or worsening symptoms occur including but not limited to chest pain, shortness of breath, please return for re-evaluation. Prescriptions: New azithromycin 250 mg tablet 250 mg PO DAILY 4 Days Qty: 4 0RF Rx Instructions: start on day 2 of therapy No Action prednisone 20 mg tablet 40 mg PO DAILY Qty: 10 0RF diphenhydramine HCl [Allergy Medication] 25 mg capsule 50 mg PO TID PRN (Reason: itching) Qty: 20 0RF omeprazole 40 mg capsule,delayed release(DR/EC) 40 mg PO DAILY Qty: 14 0RF Stand Alone Forms: Work/School Release Interventions: ED Discharge Assessment Last Done: 05/20/23 18:01 Discharge Date/Time: 05/20/23 18:00
[2023-05-20 16:29] LABS: IDNOW Serial# 08D9AD1C; Strep A Nucleic Acid Negative (Negative)
[2023-05-20 16:58] LABS: Influenza A PCR POSITIVE (Negative); Influenza B PCR NEGATIVE (Negative); Resp Syncy Virus RNA Qual PCR NEGATIVE (Negative); SARS COV2 PCR INHOUSE NEGATIVE (Negative)
[2023-05-20] MEDS: Azithromycin 500 MG TABLET PO (17:50)
[2023-05-20 17:57] VITALS: O2SAT 99
[2023-05-20 18:01] VITALS: BP 128/68; PULSE 111; RESP 18; TEMP 36.6; O2SAT 99
== END 2023-05-20 18:00 | disposition home or self-care (01) ==
PROVIDERS: Physician Assistant; Emergency Provider Emergency Medicine Emergency Medical Services
DX: J10.1 Influenza due to other identified influenza virus with other respiratory manifestations (principal); R05.9 Cough, unspecified; R09.89 Other specified symptoms and signs involving the circulatory and respiratory systems; R50.9 Fever, unspecified; Z11.52 Encounter for screening for COVID-19; Z20.822 Contact with and (suspected) exposure to COVID-19
CPT/HCPCS: 0241U; 71045; 87651; 99283; 99284

== ENCOUNTER 2024-01-08 17:00 | Emergency (ER) | payer SELFPAY ==
[2024-01-08 17:14] VITALS: BP 155/82; PULSE 83; RESP 20; TEMP 37; O2SAT 99; BMI 35.8
--- NOTE | 2024-01-08 17:14 | ED_ITS ---
HPI - Abdominal Pain General Chief Complaint: General Medical Stated Complaint: abd pain,headache, congested Time Seen by Provider: 01/08/24 23:05 Source: patient and spanish interpreter/translator Mode of arrival: ambulatory Limitations: no limitations History of Present Illness ED Provider: MONIKA AYALA narrative: 28 yo male with no sig PMH here with c/o cough, sore throat, runny nose, nausea and vomiting starting today his is also sick. He did throw up so much this AM he saw some streaks of blood in it. He is now able to drink fluids - he has no abdominal pain. He has been waiting a long time and feels better. MD elicited complaint: other (runny nose, sore throat, n/v) Pertinent past history: none Onset (ago): day(s) (1) Pain Consistency: now resolved Location: diffuse Severity: mild Quality: aching Radiation: none Migration to: no migration Exacerbating factors: eating Relieving factors: nothing Context: sick contacts Associated symptoms: nausea, vomiting and other Related Data Previous Rx's ?Medication ?Instructions ?Recorded diphenhydramine HCl 25 mg capsule 50 mg (2 x 25 mg) PO TID PRN 01/13/22 (Allergy Medication) itching #20 caps prednisone 20 mg tablet 40 mg (2 x 20 mg) PO DAILY #10 tabs 01/13/22 omeprazole 40 mg capsule,delayed 40 mg PO DAILY #14 caps 09/16/22 release azithromycin 250 mg tablet 250 mg PO DAILY 4 days #4 tabs 05/20/23 ondansetron 4 mg disintegrating 4 mg PO Q8H PRN nausea and 01/08/24 tablet vomiting #20 tabs Allergies Allergy/AdvReac Type Severity Reaction Status Date / Time No Known Allergies Allergy Verified 01/08/24 17:17 Review of Systems Review of Systems Constitutional : No Fever, pos Chills, pos Fatigue ENT/Mouth : pos sore throat, pos Rhinorrhea Eyes: No Eye Pain, No Swelling, No Redness Cardiovascular : No Chest Pain, No SOB, No Dyspnea on Exertion Respiratory : pos Cough, No Sputum Gastrointestinal : pos Nausea, pos Vomiting, No Diarrhea, pos abdominal Pain Genitourinary : No Dysuria, No Urinary Frequency, No Hematuria, Musculoskeletal : No joint pain, No Myalgias, No Joint Swelling Skin : No Skin Lesions, No rash Neuro : No Weakness, No Numbness, No Dizziness, no Headache Psych : No Anxiety/Panic, No Depression All other systems reviewed and are negative [facility] Past Medical History Attestation statement: The following information was validated with the patient. Source: old records reviewed Medical History GERD (gastroesophageal reflux disease) Social History Social History Alcohol intake: never Substance Use Type: Marijuana Advance Directives: No Advance Directives Information Provided: Yes Physical Exam ED Vital Signs: Vital Signs - 24 hr 01/08/24 17:14 01/08/24 21:30 Temperature 98.6 F 97.8 F Pulse Rate 83 69 Respiratory Rate 20 14 Blood Pressure 155/82 H 157/83 H Pulse Oximetry 99 98 Oxygen Delivery Method Room Air Room Air BMI result Body Mass Index 35.8 Appearance: Alert. Oriented X3. No acute distress. Eyes: Pupils equal, round and reactive to light. ENT: Pharynx mild erythema no exudates Neck: Normal inspection. Neck supple. CVS: Normal heart rate and rhythm. Pulses normal. Respiratory: No respiratory distress. Breath sounds normal. Abdomen: Soft and nontender. Skin: Skin warm and dry. Normal skin color. Normal skin turgor. Extremities: No lower extremity edema. Neuro: Oriented X 3. No motor deficit. No sensory deficit. Course Course Course Narrative: This is a Rapid Medical Exam performed in triage by Sakshi Downs PA-C. Full HPI, ROS and PE to be performed by primary ED provider. 28yo M presenting to the ED c/o congestion, fever, lower abdominal pain x 12 noon today and has been worsening. +N/V. denies D/C, urinary sx PE: nontoxic appearing, abdomen soft & nontender Plan: labs, UA, viral testing Medical Decision Making Medical Decision Making MDM Narrative: 28 yo male with no sig PMH here with c/o URI symptoms as well as n/v did see streak of blood in it after sig emesis - he is already tolerating PO and feels much better - at this time stable for DC benign exam and tolerating PO - zofran for home Differential Diagnosis Differential Diagnoses: The differential diagnosis associated with the presentation includes viral syndrome, MW tear, dehydration Admission/Observation Consideration of admission/observation: Escalation of care including admission/observation considered tolerating PO feels better benign exam Lab Data MDM Lab Attestation statement: I reviewed the patient's lab results. 01/08/24 17:38 01/08/24 17:38 Labs: Lab Results 01/08/24 01/08/24 Range/Units 17:38 19:47 WBC 9.2 (4.8-10.8) X10*3/uL RBC 5.01 (4.60-5.80) X10*6/uL Hgb 14.9 (14.0-18.0) g/dl Hct 43.1 (42.0-52.0) % MCV 86.0 (80.0-98.0) fL MCH 29.7 (27.0-33.0) pg MCHC 34.6 (31.0-36.0) g/dl RDW 12.5 (11.0-16.0) % Plt Count 359 (160-400) X10*3/uL MPV 9.7 (9.4-12.4) fL Immature Gran % (Auto) 0.2 (0.0-0.4) % Neut % (Auto) 51.8 (45-73) % Lymph % (Auto) 33.3 (20-40) % Kern % (Auto) 11.4 H (2-11) % Eos % (Auto) 2.7 (0-4) % Baso % (Auto) 0.6 (0-2) % Lymph # (Auto) 3.1 (1.2-4.9) X10*3/uL Kern # (Auto) 1.1 (0.1-1.2) X10*3/uL Eos # (Auto) 0.3 (0.0-0.4) X10*3/uL Baso # (Auto) 0.1 (0.0-0.2) X10*3/uL Abs Immat Gran (auto) 0.02 (0.00-0.03) X10*3/uL Absolute Neuts (auto) 4.8 (2.0-8.3) x10*3/uL Absolute Nucleated RBC 0.000 (0.0-0.012) X10*3/uL Nucleated RBC % (auto) 0.0 (0.0-0.2) /100WBC Sodium 141 (135-145) mmol/L Potassium 3.4 (3.3-5.1) mmol/L Chloride 106 (96-108) mmol/L Carbon Dioxide 27 (22-29) mmol/L Anion Gap 11 L (12-20) BUN 14 (9-16) mg/dL Creatinine 0.95 (0.5-1.4) mg/dL Estim Creat Clear Calc 122.0 Estimated GFR > 60 Random Glucose 116 H (60-115) mg/dL Calcium 8.7 (8.4-10.2) mg/dL Magnesium 2.1 (1.6-2.6) mg/dL Total Bilirubin 0.3 (0.0-1.0) mg/dL Direct Bilirubin 0.1 (0.0-0.5) mg/dL AST 41 H (5-37) U/L ALT 81 H (0-40) U/L Alkaline Phosphatase 47 (39-117) U/L Total Protein 6.5 (6.5-8.0) g/dL Albumin 3.8 (3.5-5.0) g/dL Lipase 17 (8-78) U/L Urine Color Yellow Urine Appearance Clear Urine pH 6.5 (5.0-9.0) Ur Specific Winger 1.025 (1.005-1.025) Urine Protein Negative (Neg-Trace) mg/dL Urine Glucose (UA) Negative (Negative) mg/dL Urine Ketones Negative (Negative) mg/dL Urine Blood Negative (Negative) Urine Nitrite Negative (Negative) Ur Leukocyte Esterase Negative (Negative) Influenza Type A (PCR) NEGATIVE (Negative) Influenza Type B (PCR) NEGATIVE (Negative) RSV RNA Qual (PCR) NEGATIVE (Negative) SARS-CoV-2 RNA (RT-PCR) NEGATIVE (Negative) Independent Historian Clinical information obtained from an independent historian. History obtained from or confirmed by: Spouse External Record Review External record reviewed: Outpatient record Discharge Plan Discharge Clinical Impression: Acute viral syndrome Patient Disposition: Home, Self-Care Instructions: Viral Syndrome (ED) Additional Instructions: mild bump in liver enzymes please repeat with your doctor next week return for any worsening symptoms or concerns stay hydrated eat a bland diet Prescriptions: New ondansetron 4 mg tablet,disintegrating 4 mg PO Q8H PRN (Reason: nausea and vomiting) Qty: 20 0RF No Action prednisone 20 mg tablet 40 mg PO DAILY Qty: 10 0RF diphenhydramine HCl [Allergy Medication] 25 mg capsule 50 mg PO TID PRN (Reason: itching) Qty: 20 0RF azithromycin 250 mg tablet 250 mg PO DAILY 4 Days Qty: 4 0RF Rx Instructions: start on day 2 of therapy omeprazole 40 mg capsule,delayed release(DR/EC) 40 mg PO DAILY Qty: 14 0RF Stand Alone Forms: Work/School Release Print Language: Arabic
[2024-01-08 17:42] LABS: MANUAL DIFF FLAG NO
[2024-01-08 17:47] LABS: Basophils Absolute Auto 0.1 X10*3/uL (0.0-0.2); Basophils Percent Auto 0.6 % (0-2); Eosinophils Absolute Auto 0.3 X10*3/uL (0.0-0.4); Eosinophils Percent Auto 2.7 % (0-4); Hematocrit 43.1 % (42.0-52.0); Hemoglobin 14.9 g/dl (14.0-18.0); Imm Gran Abs Auto 0.02 X10*3/uL (0.00-0.03); Imm Gran Pct Auto 0.2 % (0.0-0.4); Lymphocytes Absolute Auto 3.1 X10*3/uL (1.2-4.9); Lymphocytes Percent Auto 33.3 % (20-40); Mean Corpuscular HGB Conc 34.6 g/dl (31.0-36.0); Mean Corpuscular Hemoglobin 29.7 pg (27.0-33.0); Mean Platelet Volume 9.7 fL (9.4-12.4); Monocytes Absolute Auto 1.1 X10*3/uL (0.1-1.2); Monocytes Percent Auto 11.4 % (2-11); Neutrophils Absolute Auto 4.8 x10*3/uL (2.0-8.3); Neutrophils Percent Auto 51.8 % (45-73); Platelet Count 359 X10*3/uL (160-400); Red Blood Count 5.01 X10*6/uL (4.60-5.80); Red Cell Distribution Width 12.5 % (11.0-16.0); White Blood Count 9.2 X10*3/uL (4.8-10.8)
[2024-01-08 18:05] LABS: Alanine Aminotransferase 81 U/L (0-40); Albumin Level 3.8 g/dL (3.5-5.0); Anion Gap 11 (12-20); Bilirubin Direct 0.1 mg/dL (0.0-0.5); Bilirubin Total 0.3 mg/dL (0.0-1.0); Blood Urea Nitrogen 14 mg/dL (9-16); Calcium 8.7 mg/dL (8.4-10.2); Carbon Dioxide 27 mmol/L (22-29); Chloride 106 mmol/L (96-108); Estimated Glomerular Filt Rate > 60; Glucose Random 116 mg/dL (60-115); Lipase 17 U/L (8-78); Magnesium 2.1 mg/dL (1.6-2.6); Potassium 3.4 mmol/L (3.3-5.1); Sodium 141 mmol/L (135-145); Total Protein 6.5 g/dL (6.5-8.0)
[2024-01-08 18:23] LABS: Influenza A PCR NEGATIVE (Negative); Influenza B PCR NEGATIVE (Negative); Resp Syncy Virus RNA Qual PCR NEGATIVE (Negative); SARS COV2 PCR INHOUSE NEGATIVE (Negative)
[2024-01-08 19:39] LABS: Alkaline Phosphatase 47 U/L (39-117); Aspartate Amino Transferase 41 U/L (5-37)
[2024-01-08 19:54] LABS: Appearance Urine Clear; Color Urine Yellow; Glucose Urine UA Negative (Negative); Leukocyte Esterase Urine Negative (Negative); Nitrite Urine Negative (Negative); PH 6.5 (5.0-9.0); Specific Gravity - Urine 1.025 (1.005-1.025); Urine Blood Negative (Negative); Urine Ketones Negative (Negative); Urine Protein Negative (Neg-Trace)
[2024-01-08 21:30] VITALS: BP 157/83; PULSE 69; RESP 14; TEMP 36.6; O2SAT 98
[2024-01-08] MEDS: Ondansetron ODT 4 MG TAB.RAPDIS TRANSLINGU (23:43)
[2024-01-08 23:50] VITALS: BP 157/83; PULSE 69; RESP 14; TEMP 36.6; O2SAT 98
== END 2024-01-08 23:51 | disposition home or self-care (01) ==
PROVIDERS: Physician Assistant; Emergency Provider Emergency Medicine
DX: B34.9 Viral infection, unspecified (principal); R51.9 Headache, unspecified; R10.2 Pelvic and perineal pain; R05.9 Cough, unspecified; R11.2 Nausea with vomiting, unspecified; Z79.899 Other long term (current) drug therapy; Z03.818 Encounter for observation for suspected exposure to other biological agents ruled out
CPT/HCPCS: 0241U; 36415; 80048; 80076; 81003; 83690; 83735; 85025; 99283

== ENCOUNTER 2024-03-30 11:11 | Emergency (ER) | payer OTHER, SELFPAY ==
[2024-03-30 13:05] VITALS: BP 164/93; PULSE 65; RESP 16; TEMP 37; O2SAT 99; BMI 40.1
--- NOTE | 2024-03-30 13:13 | ED_ITS ---
HPI - Skin/Abscess/Foreign Bdy General Chief complaint: Skin/Abscess/Foreign Body Stated complaint: Lac L forearm Time Seen by Provider: 03/30/24 18:44 Related Data Previous Rx's ?Medication ?Instructions ?Recorded diphenhydramine HCl 25 mg capsule 50 mg (2 x 25 mg) PO TID PRN 01/13/22 (Allergy Medication) itching #20 caps prednisone 20 mg tablet 40 mg (2 x 20 mg) PO DAILY #10 tabs 01/13/22 omeprazole 40 mg capsule,delayed 40 mg PO DAILY #14 caps 09/16/22 release azithromycin 250 mg tablet 250 mg PO DAILY 4 days #4 tabs 05/20/23 ondansetron 4 mg disintegrating 4 mg PO Q8H PRN nausea and 01/08/24 tablet vomiting #20 tabs Allergies Allergy/AdvReac Type Severity Reaction Status Date / Time No Known Allergies Allergy Verified 03/30/24 13:06 PMFSH Past Medical History Medical History GERD (gastroesophageal reflux disease) Social History Social History Alcohol intake: never Substance Use Type: Marijuana Advance Directives: No Advance Directives Information Provided: No Physical Exam Vital Signs: Vital Signs: Last Vital Signs Temp 98.6 F 03/30/24 13:05 Pulse 65 03/30/24 13:05 Resp 16 03/30/24 13:05 BP 164/93 H 03/30/24 13:05 Pulse Ox 99 03/30/24 13:05 O2 Del Method Room Air 03/30/24 13:05 BMI result Body Mass Index 40.1 Course Course Course Narrative: This is a Rapid Medical Examination (RME) performed by Miryam Sargent PA-C in triage. Full HPI, ROS, assessment and treatment plan per primary provider in the Main ED. 29 yo male here for eval of laceration to left forearm sustained at work [employer]. reports attempting to cut something at work when the knife slipped and he cut his left forearm. knife did not break. denies attempt at self-harm. denies SI. tdap updated 1 yr ago. +1.5 cm linear lac noted to ventral left forearm. bleeding controlled. dressing applied in triage. well apperaing. Plan: laceration repair Reevaluation(s) Reevaluation #1: Patient left the emergency department before myself or any of the other clinicians could review or explain physical exam findings, test results, need or lack there of for additional testing, treatment options, or a treatment plan. Discharge Plan Discharge Clinical Impression: Forearm laceration Patient Disposition: Left W/O Completing Treatment Prescriptions: No Action prednisone 20 mg tablet 40 mg PO DAILY Qty: 10 0RF diphenhydramine HCl [Allergy Medication] 25 mg capsule 50 mg PO TID PRN (Reason: itching) Qty: 20 0RF azithromycin 250 mg tablet 250 mg PO DAILY 4 Days Qty: 4 0RF Rx Instructions: start on day 2 of therapy ondansetron 4 mg tablet,disintegrating 4 mg PO Q8H PRN (Reason: nausea and vomiting) Qty: 20 0RF omeprazole 40 mg capsule,delayed release(DR/EC) 40 mg PO DAILY Qty: 14 0RF Discharge Date/Time: 03/30/24 20:20
--- NOTE | 2024-03-30 19:58 | PC.NURSE ---
pt called multiple times while in [place]
--- OUTSIDE RECORDS SUMMARY | 2024-03-30 20:19 | XMS_ITS | Clinical Summary ---
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 Phone Unavailable Primary Care Provider Unavailabl e Allergies No known active allergies Medications predniSONE (Deltasone) 20 MG tablet 01/13/2022 Active Banophen 25 MG capsule 01/13/2022 Active Social History Tobacco Use Types Packs/Day Years Used Date Smoking Tobacco: Never Assessed Sex and Gender Information Value Date Recorded Sex Assigned at Male 02/04/2022 4:11 PM EST Legal Sex Male 2:15 PM EST Gender Identity Male 02/04/2022 4:11 PM EST Sexual Orientation Straight 02/28/2022 3: 43 PM EST Last Filed Vital Signs Vital Sign Reading Time Taken Comments Blood Pressure 122/86 03/07/2022 11:41 AM EST Pulse 72 02/05/2022 8:14 AM EST Temperature - - Respiratory Rate - - Oxygen Saturation - - Inhaled Oxygen Concentration - - Weight - - Height - - Body Mass Index - - Plan of Treatment Health Maintenance Due Date Last Done Comments Dental Oral Exam 1993 Dental Prophylaxis 1993 Dental X-Ray: Bitewings 1993 Dental X-Ray: Full Mouth 1993 Depression Screening 1993 HIV Screening 1993 SDOH Screening 1993 Alcohol/Substance Use Screening 2005 Tobacco Screening 2005 Family Planning (PISQ) 01/18/2008 Hepatitis C Screening 2011 DTaP/Tdap/Td Vaccines (1 - Tdap) 01/18/2012 Hepatitis B Vaccines (1 of 3 - 19+ 3-dose series) 01/18/2012 COVID-19 Vaccine (1 - 2023-2 5 season) 2023 Influenza Vaccine (#1) 2023 Zoster Vaccines (1 of 2) 2043 RSV Patients and Pa tients Aged 60 years or older (1 - 1-dose 75+ series) 01/18/2068 HIB Vaccines Aged Out No longer eligi ble based on patient's age to complete this topic HPV Vaccines Aged Out No longer eligi ble based on patient's age to complete this topic Hepatitis A Vaccines Aged Out No long er eligible based on patient's age to complete this topic IPV Vaccines Aged Out No longer eligi ble based on patient's age to complete this topic Meningococcal Vaccine Aged Out No dolores elizabeth eligible based on patient's age to complete this topic Pneumococcal Vaccine: Pediat rics (0 to 5 Years) and At-Risk Patients (6 to 49) Years) Aged Out No longer eligible b ased on patient's age to complete this topic RSV under 20 months Aged Out No longe r eligible based on patient's age to complete this topic Rotavirus Vaccines Aged Out No longer eligible based on patient's age to complete this topic Insurance [facility] MEDICAID STAND ADULT * Guarantor: Lion Busch Account Type Relation to Patient Date of Phone Billing Address Personal/Family Self [address] [place] [address]
== END 2024-03-30 20:20 | disposition left against medical advice (07) ==
PROVIDERS: Emergency Provider Emergency Medicine
DX: S51.812A Laceration without foreign body of left forearm, initial encounter (principal); W26.0XXA Contact with knife, initial encounter; Y93.9 Activity, unspecified; Y92.89 Other specified places as the place of occurrence of the external cause; Y99.0 Civilian activity done for income or pay
CPT/HCPCS: 99281; 99283

== ENCOUNTER 2024-03-31 09:05 | Emergency (ER) | payer OTHER, SELFPAY ==
[2024-03-31 09:43] VITALS: BP 144/89; PULSE 79; RESP 16; TEMP 36.7; O2SAT 99; BMI 36.0
[2024-03-31 14:08] VITALS: BP 176/92; PULSE 77; RESP 16; TEMP 36.6; O2SAT 99
--- NOTE | 2024-03-31 15:17 | ED.GENADULT ---
HPI - General Adult General Chief complaint: Skin/Abscess/Foreign Body Stated complaint: lac L forearm Time Seen by Provider: 03/31/24 14:16 History of Present Illness ED Provider: Ge Bro [facility] narrative: [age] year male healthy presents to ED for left forearm laceration that occurred yesterday at work. 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 Patient states box knife was dirty. Patient states up-to-date with tetanus. Patient came to the ED yesterday to be seen but waiting room was back so patient return today. Patient denies any redness, swelling, or numbness/tingling Related Data Previous Rx's ?Medication ?Instructions ?Recorded diphenhydramine HCl 25 mg capsule 50 mg (2 x 25 mg) PO TID PRN 01/13/22 (Allergy Medication) itching #20 caps prednisone 20 mg tablet 40 mg (2 x 20 mg) PO DAILY #10 tabs 01/13/22 omeprazole 40 mg capsule,delayed 40 mg PO DAILY #14 caps 09/16/22 release azithromycin 250 mg tablet 250 mg PO DAILY 4 days #4 tabs 05/20/23 ondansetron 4 mg disintegrating 4 mg PO Q8H PRN nausea and 01/08/24 tablet vomiting #20 tabs cephalexin 500 mg capsule 500 mg PO QID 7 days #28 caps 03/31/24 Allergies Allergy/AdvReac Type Severity Reaction Status Date / Time No Known Allergies Allergy Verified 03/31/24 09:51 Review of Systems Review of Systems: Left forearm laceration Yes all other systems are reviewed and are negative PMFSH Past Medical History Medical History GERD (gastroesophageal reflux disease) Social History Social History Alcohol intake: never Substance Use Type: Marijuana Advance Directives: No Advance Directives Information Provided: No Physical Exam ED Vital Signs: Vital Signs - 24 hr 03/31/24 09:43 03/31/24 14:08 03/31/24 16:21 Temperature 98.1 F 97.8 F 98.0 F Pulse Rate 79 77 62 Respiratory Rate 16 16 18 Blood Pressure 144/89 H 176/92 H 149/90 H Pulse Oximetry 99 99 100 Oxygen Delivery Method Room Air Room Air Room Air 03/31/24 16:40 Temperature 98.0 F Pulse Rate 62 Respiratory Rate 18 Blood Pressure 149/90 H Pulse Oximetry 100 Oxygen Delivery Method Room Air BMI result Body Mass Index 36.0 Const General: cooperative, healthy appearing, comfortable, no acute distress, well developed, alert and awake [facility] Head: Yes normal to inspection, Yes No palpable skull fracture present, Yes normocephalic and Yes atraumatic Eyes General: appearance normal, both eyes and all related structures Neck Neck: Yes normal visual inspection, Yes full ROM, Yes no lymphadenopathy, Yes no meningeal signs, Yes trachea midline, Yes supple, No anterior neck swelling and No tender Chest Chest palpation & inspection: normal inspection of the chest and normal palpation of entire chest wall Resp Effort & Inspection: normal respiratory effort and able to speak in complete sentences Auscultation: clear to auscultation bilaterally Cardio Jugular venous distension: no JVD Heart sounds: S1 normal heart sound present and S2 normal heart sound present GI Inspection: Yes normal to inspection Palpation (GI): Soft to palpation, not firm, nontender, no guarding and not rigid General: Yes no CVA tenderness Back/Spine/Pelvis Back: no CVA tenderness and No back tenderness Skin General skin exam: no rashes or lesions noted, elasticity normal and turgor normal Neuro General: gait normal, tone normal, moves all extremities, Normal light touch and pain sensation, no meningeal signs, no focal motor deficits, CN's II-XI intact bilaterally and normal sensation to monofilament Extrem General: Yes normal to inspection, Yes full ROM and Yes capillary refill normal Elbow/forearm/wrist images: 1. Positive laceration. Bleeding controlled. Negative for any tendon/muscle/nerve exposure. Negative for signs of tendon/muscle/nerve injury. Rest of extremity normal. Motor/neuro/vascular exam intact. Negative ecchymosis/crepitus. Negative for erythema Psych Appearance: grossly normal, well kempt and not disheveled Medications Administered Discontinued Medications Generic Name Dose Route Start Last Admin Trade Name Freq PRN Reason Stop Dose Admin Ibuprofen 800 mg 03/31/24 15:27 03/31/24 16:38 Ibuprofen 800 Mg Tablet PO 03/31/24 15:28 800 mg ONCE ONE Administration Medical Decision Making Medical Decision Making MDM Narrative: 29-year-old male presents to ED for left forearm laceration that occurred yesterday. Patient is up-to-date with tetanus. Wound cleaned with sterile saline Betadine iodine. Lidocaine 4 mL was used for anesthesia. Nylon size 3 sutures was used for laceration repair. Three sutures placed. Patient will be discharged with antibiotics due to being cut by a dirty knife. Patient explained worrisome signs and informed to return to the ED immediately. Not suspecting nerve injury, tendon injury, compartment syndrome, fracture, cellulitis, lymphedema, arterial occlusion, arterial rupture, necrotizing fasciitis, or any other concerning symptoms Differential Diagnosis Differential Diagnoses: The differential diagnosis associated with the presentation includes (Laceration) Admission/Observation Consideration of admission/observation: Escalation of care including admission/observation considered Independent Historian Clinical information obtained from an independent historian. History obtained from or confirmed by: Other (patient) Discharge Plan Discharge Clinical Impression: Laceration of forearm Patient Disposition: Home, Self-Care Instructions: Laceration (ED) Additional Instructions: Recommend follow-up with work connection. Sutures should be removed in 11 days. Return to the ED immediately for any swelling, redness, bluish black discoloration, inability to move extremities, pus discharge, foul odor, fever, chills, or any other concerning symptoms. You will be discharged with antibiotics due to being cut by a dirty knife. Prescriptions: New cephalexin 500 mg capsule 500 mg PO QID 7 Days Qty: 28 0RF No Action prednisone 20 mg tablet 40 mg PO DAILY Qty: 10 0RF diphenhydramine HCl [Allergy Medication] 25 mg capsule 50 mg PO TID PRN (Reason: itching) Qty: 20 0RF azithromycin 250 mg tablet 250 mg PO DAILY 4 Days Qty: 4 0RF Rx Instructions: start on day 2 of therapy ondansetron 4 mg tablet,disintegrating 4 mg PO Q8H PRN (Reason: nausea and vomiting) Qty: 20 0RF omeprazole 40 mg capsule,delayed release(DR/EC) 40 mg PO DAILY Qty: 14 0RF Referrals: [facility] [Outside] (Left forearm laceration) Stand Alone Forms: Work/School Release Interventions: ED Discharge Assessment Last Done: 03/31/24 16:40 Discharge Date/Time: 03/31/24 16:41 Print Language: Uzbek
[2024-03-31 16:21] VITALS: BP 149/90; PULSE 62; RESP 18; TEMP 36.7; O2SAT 100
--- OUTSIDE RECORDS SUMMARY | 2024-03-31 16:22 | XMS_ITS | Encounter Summary ---
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 Phone Unavailable Primary Care Provider Unavailabl e Reason for Referral * Consultation - Closed Specialty Diagnoses / Procedures Referred By Filippo tinoco Referred To Contact Dentistry Diagnoses completed Procedures 17 REMOVAL OF IMPACTED TOOTH - COMPLETELY BONY [facility] [address] [place] [address] Phone: tel: fax: [facility] [address] [place] [address] Phone: tel: fax: Referral ID Status Reason Start Date Expiration Date Visits Re quested Visits Authorized [id number] Closed 01/31/2022 07/30/2022 1 1 Encounter Details Date Type Department Care Team ([facility] Contact Info) Description 01/31/2022 Abstract [facility] [address] [place] [address] Dental, Provider, DDS Social History Tobacco Use Types Packs/Day Years Used Date Smoking Tobacco: Never Assessed Sex and Gender Information Value Date Recorded Sex Assigned at Male 02/04/2022 4:11 PM EST Legal Sex Male 2:15 PM EST Gender Identity Male 02/04/2022 4:11 PM EST Sexual Orientation Straight 02/28/2022 3: 43 PM EST documented as of this encounter Plan of Treatment Scheduled Orders Name Type Priority Associated Diagnoses Orde r Schedule 2 O 2 O RESIN-BASED COMPOSITE - 1 SURFACE, POSTERIOR Dental Routine [address] [facility] 03/06/2022 30 B 30 B RESIN-BASED COMPOSITE - 1 SURFACE, POSTERIOR Dental Routine [address] [facility] 03/06/2022 documented as of this encounter Visit Diagnoses Not on filedocumented in this encounter
--- OUTSIDE RECORDS SUMMARY | 2024-03-31 16:22 | XMS_ITS | Clinical Summary ---
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
[2024-03-31] MEDS: Ibuprofen 800 MG TABLET PO (16:38)
[2024-03-31 16:40] VITALS: BP 149/90; PULSE 62; RESP 18; TEMP 36.7; O2SAT 100
== END 2024-03-31 16:41 | disposition home or self-care (01) ==
PROVIDERS: Emergency Provider Emergency Medicine
DX: S51.812A Laceration without foreign body of left forearm, initial encounter (principal); W27.8XXA Contact with other nonpowered hand tool, initial encounter; Y93.89 Activity, other specified; Y92.89 Other specified places as the place of occurrence of the external cause; Y99.0 Civilian activity done for income or pay
CPT/HCPCS: 12001; 99283

== ENCOUNTER 2024-04-11 09:08 | Emergency (ER) | payer OTHER, SELFPAY ==
[2024-04-11 09:17] VITALS: BP 151/94; PULSE 87; RESP 16; TEMP 36.3; O2SAT 99; BMI 38.0
--- NOTE | 2024-04-11 09:26 | ED_ITS ---
HPI - Skin/Abscess/Foreign Bdy General Chief complaint: Skin/Abscess/Foreign Body Stated complaint: suture removal Time Seen by Provider: 04/11/24 09:22 Source: patient and RN notes reviewed Mode of arrival: ambulatory Limitations: no limitations History of Present Illness ED Provider: Brooklyn Garcia PA-C HPI narrative: This is a 29-year-old [place] speaking male who presents emergency department for suture removal. Patient initially lacerated his left forearm on March 30, 2024. He came to the emergency room on March 30 and , where he had sutures placed on the as the wait time was too long on March 30. He had 3 sutures placed. He tolerated the sutures well without any complications or concerns. His tetanus is up-to-date. He was discharged on Keflex which he co mpleted full course of. No concerns. MD complaint: laceration Relieving factors: none Exacerbating factors: none Context: none Associated symptoms: denies other symptoms Treatments prior to arrival: none Related Data Previous Rx's ?Medication ?Instructions ?Recorded diphenhydramine HCl 25 mg capsule 50 mg (2 x 25 mg) PO TID PRN 01/13/22 (Allergy Medication) itching #20 caps prednisone 20 mg tablet 40 mg (2 x 20 mg) PO DAILY #10 tabs 01/13/22 omeprazole 40 mg capsule,delayed 40 mg PO DAILY #14 caps 09/16/22 release azithromycin 250 mg tablet 250 mg PO DAILY 4 days #4 tabs 05/20/23 ondansetron 4 mg disintegrating 4 mg PO Q8H PRN nausea and 01/08/24 tablet vomiting #20 tabs cephalexin 500 mg capsule 500 mg PO QID 7 days #28 caps 03/31/24 Allergies Allergy/AdvReac Type Severity Reaction Status Date / Time No Known Allergies Allergy Verified 04/11/24 09:21 [facility] Past Medical History Medical History GERD (gastroesophageal reflux disease) Social History Social History Alcohol intake: never Substance Use Type: Marijuana Advance Directives: No Advance Directives Information Provided: No Physical Exam Vital Signs: Vital Signs: Last Vital Signs Temp 97.3 F 04/11/24 09:17 Pulse 87 04/11/24 09:17 Resp 16 04/11/24 09:17 BP 151/94 H 04/11/24 09:17 Pulse Ox 99 04/11/24 09:17 O2 Del Method Room Air 04/11/24 09:17 BMI result Body Mass Index 38.0 Const: Other: General: Awake, alert, and oriented X3. No acute distress. HEENT: Normal inspection CVS: Normal heart rate and rhythm. Pulses normal. Respiratory: No respiratory distress Skin: Left forearm there is a 2 cm well approximated, healed laceration noted, with [address], no surrounding erythema or warmth. No drainage. No evidence of wound dehiscence. Extremities: Normal to inspection Neuro: Oriented X 3. No motor deficit. No sensory deficit. Medications Administered Discontinued Medications Generic Name Dose Route Start Last Admin Trade Name Freq PRN Reason Stop Dose Admin Bacitracin 1 appl 04/11/24 09:37 04/11/24 09:42 Bacitracin Oint 0.9 Gm Packet TOPICAL 04/11/24 09:38 1 appl ONCE ONE Administration Protocol Medical Decision Making Medical Decision Making MDM Narrative: This is a 29-year-old male who presents emergency department for suture removal. He is sutures were removed using suture removal kit. Patient tolerated procedure well without any complications or concerns. Wound is well healed without any evidence of wound dehiscence. Wound dressed with bacitracin and bandage. Given strict return precautions. He understands and agrees with plan. Patient stable for discharge. Differential Diagnosis Differential Diagnoses: The differential diagnosis associated with the presentation includes Suture removal, cellulitis, wound check, wound dehiscence Discharge Plan Discharge Clinical Impression: Visit for suture removal Patient Disposition: Home, Self-Care Instructions: Stitches Removal (ED) Additional Instructions: You were seen in the emergency department for a suture removal. We removed all your sutures today. Please keep wound clean and dry. Watch for any signs of infection including but not limited to increased redness, swelling, drainage. If any new or worsening symptoms occur including but not limited to fevers, or above symptoms, please seek emergent care. Prescriptions: No Action prednisone 20 mg tablet 40 mg PO DAILY Qty: 10 0RF diphenhydramine HCl [Allergy Medication] 25 mg capsule 50 mg PO TID PRN (Reason: itching) Qty: 20 0RF azithromycin 250 mg tablet 250 mg PO DAILY 4 Days Qty: 4 0RF Rx Instructions: start on day 2 of therapy ondansetron 4 mg tablet,disintegrating 4 mg PO Q8H PRN (Reason: nausea and vomiting) Qty: 20 0RF omeprazole 40 mg capsule,delayed release(DR/EC) 40 mg PO DAILY Qty: 14 0RF cephalexin 500 mg capsule 500 mg PO QID 7 Days Qty: 28 0RF Print Language: [place]
[2024-04-11] MEDS: Bacitracin Oint 0.9 GM PACKET 1 APPL TOPICAL (09:42)
[2024-04-11 09:54] VITALS: BP 151/94; PULSE 87; RESP 16; TEMP 36.3; O2SAT 99
== END 2024-04-11 09:55 | disposition home or self-care (01) ==
PROVIDERS: Emergency Provider Emergency Medicine
DX: Z48.02 Encounter for removal of sutures (principal)
CPT/HCPCS: 99282; 99283